=== PATIENT | female | born 1955 | race Caucasian/White ===

== ENCOUNTER 2017-05-25 08:35 | Emergency (ER) | payer OTHER ==
[2017-05-25] MEDS ORDERED: NORMAL SALINE 1000 ML 1,000 ML IV PRN (09:12)
[2017-05-25] MEDS ORDERED: ONDANSETRON HCL INJ/PF 4 MG/2 ML SDV IV ONE (09:12)
[2017-05-25] MEDS ORDERED: KETOROLAC TROMETHAMINE INJ/PF 30 MG/1 ML SDV IV ONE (09:12)
[2017-05-25] MEDS ORDERED: MORPHINE SULFATE 10 MG/ML INJ IV ONE (09:12)
--- NOTE | 2017-05-25 09:14 | ER Document Report ---
ED Medical Screen (RME) - General Chief Complaint: Flank Pain Stated Complaint: LOW BACK PAIN Time Seen by Provider: 05/25/17 09:10 Notes: Pt was here several days ago and diagnosed with kidney stones. She says medicines are not working. pain is in right flank. TRAVEL OUTSIDE OF THE [place] IN LAST 30 DAYS: No - Related Data Allergies/Adverse Reactions: No Known Allergies Allergy (Verified 05/25/17 08:46) Past Medical History - Past Medical History Cardiac Medical History: Reports: Hx Hypertension Endocrine Medical History: Reports: Hx Hypothyroidism Renal/ Medical History: Denies: Hx Peritoneal Dialysis GI Medical History: Reports: Hx Diverticulitis Past Surgical History: Reports: Hx Abdominal Surgery - Colon resection d/t diverticulitis (Aug 2016), Hx Section, Hx Cholecystectomy - Immunizations Hx Diphtheria, Pertussis, Tetanus Vaccination: Yes Physical Exam - Vital signs Vitals: Temp Pulse Resp BP Pulse Ox 97.8 F 63 18 179/84 H 99 05/25/17 08:42 05/25/17 08:42 05/25/17 08:42 05/25/17 08:42 05/25/17 08:42 Course - Vital Signs Vital signs: Temp Pulse Resp BP Pulse Ox 97.8 F 63 18 179/84 H 99 05/25/17 08:42 05/25/17 08:42 05/25/17 08:42 05/25/17 08:42 05/25/17 08:42
[2017-05-25 09:40] LABS: ABSOLUTE LYMPHOCYTES (AUTO) 0.4 10^3/uL (0.5-4.7); ABSOLUTE NEUT (AUTO) 4.7 10^3/uL (1.7-8.2); BASOPHILS % (AUTO) 0.5 % (0-2); EOSINOPHILS % (AUTO) 0.6 % (0-6); HEMATOCRIT 41.8 % (36.0-47.0); HEMOGLOBIN 13.9 g/dL (12.0-15.5); HGB HCT DIFFERENCE -0.1; LYMPHOCYTES % (AUTO) 8.6 % (13-45); MEAN CORPUSCULAR HEMOGLOBIN 27.6 pg (27.0-33.4); MEAN CORPUSCULAR HGB CONC 33.2 g/dL (32.0-36.0); MEAN CORPUSCULAR VOLUME 83 fl (80-97); MONOCYTES % (AUTO) 0.4 % (3-13); RED BLOOD COUNT 5.03 10^6/uL (3.72-5.28); RED CELL DISTRIBUTION WIDTH 17.8 % (11.5-14.0); SEGMENTED NEUTROPHILS % (AUTO) 89.9 % (42-78); WHITE BLOOD COUNT 5.2 10^3/uL (4.0-10.5)
[2017-05-25 09:59] LABS: ANION GAP 10 (5-19); BLOOD UREA NITROGEN 24 mg/dL (7-20); CALCIUM 9.3 mg/dL (8.4-10.2); CARBON DIOXIDE 29 mmol/L (22-30); CHLORIDE 98 mmol/L (98-107); CREATININE RESULT 0.94 mg/dL (0.52-1.25); GLUCOSE 106 mg/dL (75-110); POTASSIUM 4.7 mmol/L (3.6-5.0); SODIUM 136.8 mmol/L (137-145)
--- NOTE | 2017-05-25 10:49 | ER Document Report ---
ED GI/ - General Chief Complaint: Flank Pain Stated Complaint: LOW BACK PAIN Time Seen by Provider: 05/25/17 09:10 Mode of Arrival: Ambulatory Information source: Patient Notes: 61 yo female with sharp RLQ abdominal pain , took her breath away when she woke up [id number]. Found kidney stone on CT 05-20-17, 2 distal ureter stones, with hydro and perinephrectic stranding. NO antibiotics.. Dilaudid 12mg did not relieve the pain. PMH: dermomyositis., partial colectomy due to perforation 09/03. Pain level now 2.5/5 now. TRAVEL OUTSIDE OF THE [place] IN LAST 30 DAYS: No - Related Data Allergies/Adverse Reactions: No Known Allergies Allergy (Verified 05/25/17 08:46) Past Medical History - General Information source: Patient - Social History Smoking Status: Unknown if Ever Smoked Lives with: Family Family History: None Patient has suicidal ideation: No Patient has homicidal ideation: No - Past Medical History Cardiac Medical History: Reports: Hx Hypertension Endocrine Medical History: Reports: Hx Hypothyroidism Renal/ Medical History: Denies: Hx Peritoneal Dialysis GI Medical History: Reports: Hx Diverticulitis Past Surgical History: Reports: Hx Abdominal Surgery - Colon resection d/t diverticulitis (Aug 2016), Hx Section, Hx Cholecystectomy - Immunizations Hx Diphtheria, Pertussis, Tetanus Vaccination: Yes Review of Systems - Review of Systems Constitutional: No symptoms reported EENT: No symptoms reported Cardiovascular: No symptoms reported Respiratory: No symptoms reported Gastrointestinal: No symptoms reported Genitourinary: See HPI Female Genitourinary: No symptoms reported Musculoskeletal: No symptoms reported Skin: No symptoms reported Hematologic/Lymphatic: No symptoms reported Neurological/Psychological: No symptoms reported Physical Exam - Vital signs Vitals: Temp Pulse Resp BP Pulse Ox 97.8 F 63 18 179/84 H 99 05/25/17 08:42 05/25/17 08:42 05/25/17 08:42 05/25/17 08:42 05/25/17 08:42 Interpretation: Normal - General General appearance: Appears well, Alert - HEENT Head: Normocephalic, Atraumatic Eyes: Normal Pupils: PERRL Neck: Supple. No: Lymphadenopathy - Respiratory Respiratory status: No respiratory distress Chest status: Nontender Breath sounds: Normal Chest palpation: Normal - Cardiovascular Rhythm: Regular Heart sounds: Normal auscultation Murmur: No - Abdominal Inspection: Normal Distension: No distension Bowel sounds: Normal Tenderness: Nontender Organomegaly: No organomegaly - Back Back: Normal, Nontender. No: CVA tenderness - Extremities General upper extremity: Normal inspection, Nontender, Normal color, Normal ROM , Normal temperature General lower extremity: Normal inspection, Nontender, Normal color, Normal ROM , Normal temperature, Normal weight bearing. No: Kaitlyn's sign - Neurological Neuro grossly intact: Yes Cognition: Normal Orientation: AAOx4 [place] Coma Scale Eye Opening: Spontaneous [place] Coma Scale Verbal: Oriented [place] Coma Scale Motor: Obeys Commands [place] Coma Scale Total: 15 Speech: Normal Motor strength normal: LUE, RUE, LLE, RLE Sensory: Normal - Psychological Associated symptoms: Normal affect, Normal mood - Skin Skin Temperature: Warm Skin Moisture: Dry Skin Color: Normal Skin irregularity: negative: Rash Course - Re-evaluation Re-evalutation: 05/25/17 11:57 labs OK, do not suspect urinary infection. No flomax advised per dr. tarango. pt does not have any pain medication left. rec she call for urology appt, numbers provided 05/25/17 11:58 - Vital Signs Vital signs: Temp Pulse Resp BP Pulse Ox 97.9 F 69 17 113/65 97 05/25/17 12:22 05/25/17 12:22 05/25/17 12:22 05/25/17 12:22 05/25/17 12:22 - Laboratory Result Diagrams: 05/25/17 09:27 05/25/17 09:27 Laboratory results interpreted by me: 05/25/17 05/25/17 09:27 09:27 RDW 17.8 H Seg Neutrophils % 89.9 H Lymphocytes % 8.6 L Monocytes % 0.4 L Absolute Lymphocytes 0.4 L Absolute Monocytes 0.0 L Sodium 136.8 L BUN 24 H Discharge - Discharge Clinical Impression: Right ureteral calculus, Right lateral abdominal pain Condition: Good Disposition: HOME, SELF-CARE Instructions: Abdominal Pain ([facility]), Antinausea Medication ([facility]), Oral Narcotic Medication ([facility]) Additional Instructions: schedule appt with uorlogist: [facility]: Address: [address] [place] [address] , [place], [place] [address]fuTcwnc: Open today [id number] , 15PM Tuesday [id number], 15PM [id number], 15PM Tuesday [id number], 15PM Tuesday Closed Tuesday Closed Tuesday [id number], 15PM Tuesday [id number], 15PM [facility]ly [facility] ClinicWebsite [email or web address] Google reviewsnmUrologist in [facility] Address: [address] [place] [address], [place], [place] [address]ptDpvun: Open today 8:30AM4 :45PM Tuesday 8:30AM4:45PM 8:30AM4:45PM Tuesday 8:30AM4:45PM Tuesday Closed Tuesday Closed Tuesday 8:30AM4:45PM Tuesday 8:30AM4:45PM [facility] urology [address] [place] [address]. [phone] return to er any concerns or worsening symptoms take over the counter stool softner while taking the opiate pain medication so you won't get constipated Please complete the patient satisfaction survey if you get one, and return it.. If you do not receive a survey, then you can go to the [facility] website, [email or web address] and place your comments about your very good care. Thank you very much. It was a pleasure being your medical provider today. Prescriptions: Hydromorphone HCl [Dilaudid] 4 mg PO Q4HP PRN #20 tablet PRN Reason: Referrals: SIMONA SADLER MD [Primary Care Provider] - Follow up as needed
[2017-05-25 11:13] LABS: APPEARANCE,URINE CLEAR; BILIRUBIN,URINE NEGATIVE (NEGATIVE); GLUCOSE, URINE NEGATIVE (NEGATIVE); KETONES,URINE NEGATIVE (NEGATIVE); LEUKOCYTE ESTERASE,URINE NEGATIVE (NEGATIVE); NITRITE,URINE NEGATIVE (NEGATIVE); PROTEIN,URINE NEGATIVE (NEGATIVE); URINE SPECIFIC GRAVITY 1.017; UROBILINOGEN,URINE NEGATIVE mg/dL (<2.0)
[2017-05-25 12:27] VITALS: BP 113/65
== END 2017-05-25 12:27 | disposition home or self-care (01) ==
LOC: ER 08:35
DX: N20.1 Calculus of ureter (principal); R10.31 Right lower quadrant pain; M54.5 Low back pain; Z79.899 Other long term (current) drug therapy
CPT/HCPCS: 99284; 96361; 96374; 96375; 36415; 87086; 85025; 87088; 80048; 81001; 87186; J1885; J2270; J2405; J7030

== ENCOUNTER 2018-07-28 23:50 | Emergency (ER) | payer OTHER ==
[2018-07-29] MEDS ORDERED: HYDROMORPHONE HCL INJ/PF 2 MG/ML AMPULE IV ONE ×2 (00:36→02:18)
[2018-07-29] MEDS ORDERED: ONDANSETRON HCL INJ/PF 4 MG/2 ML SDV IV ONE (00:36)
[2018-07-29] MEDS ORDERED: NORMAL SALINE 1000 ML 1,000 ML IV ONE (00:37)
--- NOTE | 2018-07-29 01:04 | RADIOLOGY REPORT (SQ) ---
EXAM DESCRIPTION: CT HEAD WITHOUT IV CONTRAST COMPLETED DATE/TME: 07/29/2018 00:36 CLINICAL HISTORY: 63 years Female, headache COMPARISON: None. TECHNIQUE: No contrast. Coronal and sagittal reformat. This exam was performed according to our departmental dose-optimization program, which includes automated exposure control, adjustment of the mA and/or kV according to patient size and/or use of iterative reconstruction technique. FINDINGS: No hemorrhage or infarct. No mass, mass effect, or midline shift. Brain and extra-axial structures appear intact. IMPRESSION: Normal CT of the head.
[2018-07-29 01:07] LABS: ABSOLUTE BASOPHILS # (AUTO) 0.1 10^3/uL (0.0-0.2); ABSOLUTE EOSINOPHILS # (AUTO) 0.5 10^3/uL (0.0-0.6); ABSOLUTE LYMPHOCYTES (AUTO) 0.6 10^3/uL (0.5-4.7); ABSOLUTE MONOCYTES (AUTO) 0.3 10^3/uL (0.1-1.4); ABSOLUTE NEUT (AUTO) 9.9 10^3/uL (1.7-8.2); BASOPHILS % (AUTO) 0.6 % (0-2); EOSINOPHILS % (AUTO) 4.1 % (0-6); HEMATOCRIT 38.6 % (36.0-47.0); LYMPHOCYTES % (AUTO) 5.4 % (13-45); MEAN CORPUSCULAR HEMOGLOBIN 21.5 pg (27.0-33.4); MEAN CORPUSCULAR HGB CONC 31.2 g/dL (32.0-36.0); MEAN CORPUSCULAR VOLUME 69 fl (80-97); MONOCYTES % (AUTO) 2.7 % (3-13); PLATELET COUNT 287 10^3/uL (150-450); RED BLOOD COUNT 5.59 10^6/uL (3.72-5.28); RED CELL DISTRIBUTION WIDTH 21.8 % (11.5-14.0); SEGMENTED NEUTROPHILS % (AUTO) 87.2 % (42-78); TOTAL CELLS COUNTED % (AUTO) 100 %; WHITE BLOOD COUNT 11.4 10^3/uL (4.0-10.5)
--- NOTE | 2018-07-29 01:07 | RADIOLOGY REPORT (SQ) ---
EXAM DESCRIPTION: XR CHEST 1 VIEW COMPLETED DATE/TME: 07/29/2018 00:37 CLINICAL HISTORY: 63 years Female, abdominal pain COMPARISON: None. NUMBER OF VIEWS/TECHNIQUE: 1/AP FINDINGS: Adequate lung volume, clear parenchyma, normal cardiac silhouette, and intact bony thorax. IMPRESSION: No acute cardiopulmonary findings.
--- NOTE | 2018-07-29 01:10 | ER Document Report ---
ED General - General Chief Complaint: Vomiting Stated Complaint: VOMITING Time Seen by Provider: 07/29/18 00:31 Notes: Patient is a pleasant 63-year-old female with a previous history of partial colectomy due to ruptured diverticuli. Last surgery was just under a year ago at [facility]. This was her colostomy takedown. She is been doing well until today she still having low abdominal pain and vomiting. She vomited for over an hour and then start having a headache as well after the vomiting it started. Headache started approximately 3 hours ago. No fevers. No diarrhea. No blood in her stool. She does have a known ventral hernia which has not been hard or firm. TRAVEL OUTSIDE OF THE [place] IN LAST 30 DAYS: No - Related Data Allergies/Adverse Reactions: No Known Allergies Allergy (Verified 05/25/17 08:46) Past Medical History - Social History Smoking Status: Unknown if Ever Smoked Frequency of alcohol use: None Drug Abuse: None Family History: None - Past Medical History Cardiac Medical History: Reports: Hx Hypertension Endocrine Medical History: Reports: Hx Hypothyroidism Renal/ Medical History: Reports: Hx Kidney Stones. Denies: Hx Peritoneal Dialysis GI Medical History: Reports: Hx Diverticulitis Past Surgical History: Reports: Hx Abdominal Surgery - Colon resection d/t diverticulitis (Aug 2016), Hx Section, Hx Cholecystectomy - Immunizations Hx Diphtheria, Pertussis, Tetanus Vaccination: Yes Review of Systems - Review of Systems Notes: My Normal Review Basic REVIEW OF SYSTEMS: CONSTITUTIONAL : Denies fever, chills, or sweats. Denies recent illness. CARDIOVASCULAR: Denies chest pain. RESPIRATORY: Denies cough, cold, or chest congestion. Denies shortness of breath, difficulty breathing, or wheezing. GASTROINTESTINAL: Moderate diffuse abdominal pain. Recurrent vomiting. MUSCULOSKELETAL: Denies neck or back pain or joint pain or swelling. SKIN: Denies rash or skin lesions. NEUROLOGICAL: Denies altered mental status or loss of consciousness. Has a headache. Denies weakness or paralysis or loss of use of either side. Denies problems with gait or speech. Denies sensory or motor loss. ALL OTHER SYSTEMS REVIEWED AND NEGATIVE. Physical Exam - Vital signs Vitals: Temp Pulse Resp BP Pulse Ox 97.6 F 95 22 H 181/82 H 98 07/29/18 00:08 07/29/18 00:08 07/29/18 00:08 07/29/18 00:08 07/29/18 00:08 - Notes Notes: General Appearance: Well nourished, alert, cooperative, no acute distress, moderate obvious discomfort. Vitals: reviewed, See vital signs table. Head: no swelling or tenderness to the head Eyes: PERRL, EOMI, Conjuctiva clear Mouth: No decreasd moisture Lungs: No wheezing, No rales, No rhonci, No accessory muscle use, good air exchange bilaterally. Heart: Normal rate, Regular rythm, No murmur, no rub Abdomen: Normal BS, soft, No rigidity, moderate abdominal pain to palpation mainly over the upper half of the abdomen. Lower half of the abdomen has mild tenderness. Patient does have a ventral hernia which is soft and easily reducible. Mild guarding, no rebound, no abdominal masses, no organomegaly Extremities: strength 5/5 in all extremities, good pulses in all extremities, no swelling or tenderness in the extremities, no edema. Skin: warm, dry, appropriate color, no rash Neuro: speech clear, oriented x 3, normal affect, responds appropriately to questions. Course - Re-evaluation Re-evalutation: 07/29/18 03:49 Went to reevaluate the patient. She is currently sleeping and resting comfortably without any distress. Vital signs are stable. 07/29/18 04:35 Reevaluation patient continues to feel well. The CT scan mentioned that she has moderate severe hydronephrosis of the right kidney due to a probable ureteral stricture. Patient says this is well known. She had a stent in there in the past. She is asked to follow up with a urologist at [facility] to talk about further intervention for this. She says the pain she has not does not feel anything similar to what she had up with her kidney in the past. Her renal function is normal. I will obtain a straight cath urine to make sure that her urine is clear of infection. She has remained abdominal pain free since receiving the second dose pain medicine. She continues to look well. Will test urine to make sure is no evidence of infection. 07/29/18 05:46 Patient's urinalysis shows no evidence of infection. Patient's symptoms continue be completely resolved and she says she feels great without any pain or recurrent nausea. She says that the hydronephrosis in the right kidney and ureteral stricture is well known and she is supposed to follow-up again with a urologist at [facility] about this. Her serum creatinine is normal and she has no infection with urine and therefore I do not think there is anything acute in relation to her right kidney at this time. Suspect is possible that she may have had a intermittent small bowel obstruction as since resolved. Suspect she has had recurrent surgeries on her abdomen but probably has multiple adhesions and she had intractable vomiting with significant pain when she first arrived. All this seems to have resolved and her scan shows no evidence of obstruction at this time. He did develop inflammation around the rectum however the patient has no pain in the rectum or lower abdomen. At this time if the patient is safe to be discharged home. I strongly encourage her follow-up with her doctor Tuesday for close reevaluation. I informed her that she is have a low very low threshold to return to ER if she has any recurrence of her symptoms whatsoever. Patient agrees with plan and will be discharged home. Dictation of this chart was performed using voice recognition software; therefore, there may be some unintended grammatical errors. - Vital Signs Vital signs: Temp Pulse Resp BP Pulse Ox 97.8 F 95 12 137/79 H 97 07/29/18 04:21 07/29/18 00:08 07/29/18 05:01 07/29/18 05:01 07/29/18 05:01 - Laboratory Result Diagrams: 07/29/18 00:53 07/29/18 00:53 Laboratory results interpreted by me: 07/29/18 07/29/18 00:53 00:53 WBC 11.4 H RBC 5.59 H MCV 69 L MCH 21.5 L MCHC 31.2 L RDW 21.8 H Seg Neutrophils % 87.2 H Lymphocytes % 5.4 L Monocytes % 2.7 L Absolute Neutrophils 9.9 H Carbon Dioxide 21 L Est GFR (Non-Af Amer) 49 L Glucose 196 H AST 112 H ALT 110 H Discharge - Discharge Clinical Impression: Abdominal pain Qualifiers: Abdominal location: upper abdomen, unspecified Qualified Code(s): R10.10 - Upper abdominal pain, unspecified Vomiting Qualifiers: Vomiting type: unspecified Vomiting Intractability: non-intractable Nausea presence: with nausea Qualified Code(s): R11.2 - Nausea with vomiting, unspecified Condition: Good Disposition: HOME, SELF-CARE Additional Instructions: Please follow up closely with your primary care doctor on Tuesday for reevaluation. Your CT scan does not show any concerning acute findings. Your scan does demonstrate your known stricture of your ureter on the right side. please continue to follow up with your urologist in [facility] about this. The exact cause of your pain is not completely clear at this time; Therefore, it is very important you return to the ER if you have any recurrence of pain, intractable vomiting, fevers, or feel unwell in any way. Prescriptions: Ondansetron [Zofran Odt 4 mg Tablet] 1 tab PO Q4H PRN #15 tab.rapdis PRN Reason: For Nausea/Vomiting Referrals: SIMONA SADLER MD [NO LOCAL MD] - 07/31/18
[2018-07-29 01:12] LABS: INTERNATIONAL RATION (INR) 0.91; PROTHROMBIN TIME 12.7 SEC (11.4-15.4)
[2018-07-29 01:13] LABS: PARTIAL THROMBOPLASTIN TIME 25.8 SEC (23.5-35.8)
[2018-07-29 01:35] LABS: ALANINE AMINOTRANSFERASE 110 U/L (9-52); ALBUMIN 4.7 g/dL (3.5-5.0); ALKALINE PHOSPHATASE 89 U/L (38-126); ANION GAP 18 (5-19); ASPARTATE AMINO TRANSFERASE 112 U/L (14-36); BLOOD UREA NITROGEN 16 mg/dL (7-20); CALCIUM 9.7 mg/dL (8.4-10.2); CARBON DIOXIDE 21 mmol/L (22-30); CHLORIDE 104 mmol/L (98-107); GLUCOSE 196 mg/dL (75-110); POTASSIUM 3.8 mmol/L (3.6-5.0); SODIUM 142.9 mmol/L (137-145)
[2018-07-29 01:36] LABS: BILIRUBIN,DIRECT 0.4 mg/dL (0.0-0.4); BILIRUBIN,TOTAL 0.7 mg/dL (0.2-1.3); LIPASE 183.8 U/L (23-300); TOTAL PROTEIN 7.6 g/dL (6.3-8.2)
--- NOTE | 2018-07-29 04:20 | RADIOLOGY REPORT (SQ) ---
CT abdomen and pelvis with contrast on 07/29/2018 at 3:49 AM CLINICAL INDICATION: Epigastric pain, vomiting TECHNIQUE: Multiple axial images are obtained throughout the abdomen and pelvis following the administration of IV and oral contrast. This exam was performed according to our departmental dose-optimization program, which includes automated exposure control, adjustment of the mA and/or kV according to patient size and/or use of iterative reconstruction technique. Total DLP is 1021.78 mGy*cm. COMPARISON: None currently available FINDINGS: Abdomen: There is minimal basilar atelectasis. There is fatty infiltration of the liver. There are rounded lesions in the upper liver that are indeterminate. For example lesion on image 21 of series 5 measures 4.5 x 3.2 cm. Recommend follow-up liver protocol MRI with and without contrast to better characterize. There is oral contrast in the distal esophagus suggesting gastroesophageal reflux. The patient is status post cholecystectomy. There is right renal atrophy. There is severe right hydronephrosis and hydroureter to the level of the distal ureter with transition to normal caliber right distal ureter in the right pelvis from unknown definite etiology. This may be related to ureteral stricture. Recommend urology consultation for right retrograde pyelogram. The right renal atrophy suggests this may be chronic in nature. The solid abdominal organs are otherwise unremarkable. There is no abdominal adenopathy. There is no free fluid or free air within the abdomen. The patient is status post a right hemicolectomy. There is a midline anterior abdominal wall hernia that is likely incisional in nature containing nonobstructed small bowel. There are multiple adherent loops of bowel along the anterior abdominal wall likely related to adhesions with no evidence of obstruction. Pelvis: Pelvic organs appear unremarkable by CT. There is some wall thickening of the rectum with adjacent fat stranding may represent proctitis, recommend correlation with digital rectal exam and/or colonoscopy. Pelvic portion of the GI tract is otherwise unremarkable. There is no pelvic adenopathy. There is no free fluid in the pelvis. Degenerative changes are noted in the spine. IMPRESSION: 1. Severe right hydronephrosis and hydroureter to the level of the distal ureter without identifiable cause, this could be related to tumor or stricture, recommend urology consultation for retrograde pyelogram. The right renal atrophy suggests this may be more chronic in nature. 2. Fatty infiltration of the liver with apparent liver lesions that are indeterminate, recommend follow-up liver protocol MRI with and without contrast. 3. Rectal wall thickening with adjacent fat stranding that may represent proctitis, please correlate clinically and with physical exam and consider follow-up colonoscopy if there is concern for malignancy. 4. Midline likely incisional anterior abdominal wall hernia containing nonobstructed bowel. 5. Findings consistent with gastroesophageal reflux.
[2018-07-29 05:24] LABS: APPEARANCE,URINE CLEAR; BILIRUBIN,URINE NEGATIVE (NEGATIVE); COLOR,URINE YELLOW; GLUCOSE, URINE NEGATIVE (NEGATIVE); KETONES,URINE NEGATIVE (NEGATIVE); LEUKOCYTE ESTERASE,URINE NEGATIVE (NEGATIVE); NITRITE,URINE NEGATIVE (NEGATIVE); PROTEIN,URINE NEGATIVE (NEGATIVE); URINE SPECIFIC GRAVITY 1.038; UROBILINOGEN,URINE NEGATIVE mg/dL (<2.0)
[2018-07-29 05:54] VITALS: BP 133/71
== END 2018-07-29 05:55 | disposition home or self-care (01) ==
LOC: ER 23:50
DX: R11.2 Nausea with vomiting, unspecified (principal); R51 Headache; K43.9 Ventral hernia without obstruction or gangrene; N13.1 Hydronephrosis with ureteral stricture, not elsewhere classified; R10.30 Lower abdominal pain, unspecified; I10 Essential (primary) hypertension; Z90.49 Acquired absence of other specified parts of digestive tract; Z87.19 Personal history of other diseases of the digestive system; Z87.442 Personal history of urinary calculi
CPT/HCPCS: 96376; 99284; 96361; 51701; 96374; 96375; 36415; 83690; 85025; 85610; 85730; 80053; 81001; 71045; 70450; 74177; J1170; J2405; J7030